=== PATIENT | female | born 1990 | race African-American/Black ===

== ENCOUNTER 2023-11-04 01:33 | Emergency (ER) | payer OTHER ==
[2023-11-04 01:41] VITALS: BMI 23.3
[2023-11-04] MEDS ORDERED: ONDANSETRON 4 MG/2 ML VIAL ONE ×2 (02:14→06:42)
[2023-11-04] MEDS ORDERED: ACETAMINOPHEN INJECTION 100 ML IVPB ONE (02:14)
[2023-11-04] MEDS: ACETAMINOPHEN 1000 MG/100 ML BAG IVPB ONE (02:35)
[2023-11-04] MEDS: ONDANSETRON 4 MG/2 ML VIAL IVPUSH ONE ×2 (02:35→06:47)
[2023-11-04] MEDS: SODIUM CHLORIDE 0.9% 500 ML INFUS.BAG IV ONE (02:35)
[2023-11-04 02:39] LABS: BASO % 0.3 % (0-2.0); EOS % 0.8 % (0-4.5); HEMATOCRIT 37.3 % (32.4-45.2); HEMOGLOBIN 12.9 GM/dL (10.7-15.3); LYMPH % 20.4 % (8-40); MCH 29.8 pg (25.7-33.7); MCHC 34.7 g/dl (32.0-36.0); MEAN CELL VOLUME 85.9 fl (80-96); MEAN PLT VOLUME 8.6 fl (7.5-11.1); MONO % 10.1 % (3.8-10.2); NEUT % 68.4 % (42.8-82.8); PLATELET COUNT 211 10^3/uL (134-434); RBC 4.34 M/mm3 (3.60-5.2); RDW 12.9 % (11.6-15.6)
[2023-11-04 03:07] LABS: POTASSIUM 3.9 mmol/L (3.5-5.1)
[2023-11-04 03:08] LABS: CALCIUM 9.4 mg/dL (8.5-10.1)
[2023-11-04 03:09] LABS: ALBUMIN 3.7 g/dl (3.4-5.0); BLOOD UREA NITROGEN 7.4 mg/dL (7-18); MAGNESIUM 1.8 mg/dL (1.8-2.4)
[2023-11-04 03:12] LABS: CREATININE 0.7 mg/dL (0.55-1.3)
[2023-11-04 03:14] LABS: BILIRUBIN,TOTAL 0.9 mg/dL (0.2-1); TOT PROT 6.9 g/dl (6.4-8.2)
[2023-11-04 05:40] LABS: PH,URINE 5.5 (5.0-8.0); URINE APPEARANCE CLEAR; URINE BILIRUBIN NEGATIVE (NEGATIVE); URINE COLOR YELLOW; URINE GLUCOSE (UA) NEGATIVE (NEGATIVE); URINE KETONE 3+ (NEGATIVE); URINE LEUK ESTERASE NEGATIVE (NEGATIVE); URINE NITRITE NEGATIVE (NEGATIVE); URINE PROTEIN NEGATIVE (NEGATIVE); URINE UROBILINOGEN 0.2 mg/dL (0.2-1.0)
[2023-11-04] MEDS: DEXTROSE 5%-NORMAL SALINE 1,000 ML IV ONE (06:21)
[2023-11-04 07:27] VITALS: BP 96/57; PULSE 77; RESP 16; TEMP 98.9
== END 2023-11-04 08:20 | disposition home or self-care (01) ==
LOC: JER 01:33
PROC: 3E033NZ Introduction of Analgesics, Hypnotics, Sedatives into Peripheral Vein, Percutaneous Approach (ICD-10-PCS; principal; 2023-11-04)
PROC: 3E033GC Introduction of Other Therapeutic Substance into Peripheral Vein, Percutaneous Approach (ICD-10-PCS; 2023-11-04)
PROC: 3E033GC Introduction of Other Therapeutic Substance into Peripheral Vein, Percutaneous Approach (ICD-10-PCS; 2023-11-04)
PROC: 3E0337Z Introduction of Electrolytic and Water Balance Substance into Peripheral Vein, Percutaneous Approach (ICD-10-PCS; 2023-11-04)
DX: O26.891 Other specified pregnancy related conditions, first trimester (principal); R10.9 Unspecified abdominal pain; O20.9 Hemorrhage in early pregnancy, unspecified; O21.9 Vomiting of pregnancy, unspecified; Z3A.01 Less than 8 weeks gestation of pregnancy
CPT/HCPCS: 36415; 76817-TC; 80053; 81003; 83735; 84702; 85025; 86850; 86900; 86901; 87086; 99284-25; J0131